=== PATIENT | female | born 1945 | race Caucasian/White ===

== ENCOUNTER 2023-09-07 10:17 | Outpatient (CLI) | payer MEDICARE ==
[2023-09-07 12:03] LABS: Hematocrit 37.3 % (34.9-44.5); Hemoglobin 12.3 g/dL (12.0-15.5); Mean Corpuscular Hemoglobin 30.9 pg (27.0-33.0); Mean Corpuscular Volume 93.7 fl (81.6-98.3); Mean Platelet Volume 9.7 fl (7.4-10.4); Platelet Count 337 10x3/uL (150-450); Red Blood Cell (RBC) Count 3.98 10x6/uL (3.90-5.03); White Blood Cell (WBC) Count 11.3 10x3/uL (3.5-10.5)
[2023-09-07 12:26] LABS: ALT (SGPT) 60 U/L (8-55); AST (SGOT) 53 U/L (5-34); Albumin 4.2 g/dL (3.4-4.8); Alkaline Phosphatase 198 U/L (40-110); Anion Gap 13 mmol/L (10-20); BUN (Urea Nitrogen) 14 mg/dL (9.8-20.1); Bilirubin, Direct 0.2 mg/dL (0.1-0.3); Bilirubin, Total 0.5 mg/dL (0.2-1.2); Calc. Creatinine Clearance 0 mL/min (70-130); Calcium 9.4 mg/dL (7.8-10.44); Carbon Dioxide 25 mmol/L (23-31); Chloride 100 mmol/L (98-107); Estimated GFR 83; Glucose 98 mg/dL (83-110); Potassium 4.4 mmol/L (3.5-5.1); Protein, Total 6.7 g/dL (5.8-8.1); Sodium 134 mmol/L (136-145)
[2023-09-07 12:39] LABS: PTT 27.5 sec (22.0-33.0); Prothrombin Time 10.8 sec (9.5-12.1)
== END 2023-09-07 10:18 | disposition home or self-care (01) ==
LOC: CSHLAB 10:17
PROVIDERS: ATTEND Surgery
DX: Z01.818 Encounter for other preprocedural examination (principal); C18.7 Malignant neoplasm of sigmoid colon
CPT/HCPCS: 80048; 80076; 85027; 85610; 85730; 93005; 93010